=== PATIENT | female | born 1990 | race Caucasian/White ===

== ENCOUNTER 2017-10-16 21:47 | Emergency (ER) | payer MEDICAID ==
[2017-10-17 00:05] VITALS: BP 116/60
== END 2017-10-17 00:20 | disposition home or self-care (01) ==
LOC: ED 21:47
DX: N83.202 Unspecified ovarian cyst, left side (principal)
CPT/HCPCS: J1885

== ENCOUNTER 2017-11-05 13:48 | Emergency (ER) | payer MEDICAID ==
[~2017-11-05] VITALS: Ht 154.9 cm; Wt 78.5 kg
[2017-11-05 13:54] VITALS: Ht 154.9 cm; Wt 78.5 kg
[2017-11-05 14:48] VITALS: BP 105/68
== END 2017-11-05 14:48 | disposition home or self-care (01) ==
LOC: ED 13:48
DX: M54.2 Cervicalgia (principal); V49.9XXA Car occupant (driver) (passenger) injured in unspecified traffic accident, initial encounter; Y93.89 Activity, other specified; Y92.89 Other specified places as the place of occurrence of the external cause; Y99.8 Other external cause status
CPT/HCPCS: J1885

== ENCOUNTER 2018-04-03 18:34 | Emergency (ER) | payer OTHER ==
[~2018-04-03] VITALS: Ht 152.4 cm; Wt 85.3 kg
[2018-04-03 18:47] VITALS: Ht 152.4 cm; Wt 85.3 kg
[2018-04-03 21:22] VITALS: BP 113/65
== END 2018-04-03 21:22 | disposition home or self-care (01) ==
LOC: ED 18:34
DX: S39.012A Strain of muscle, fascia and tendon of lower back, initial encounter (principal); M54.41 Lumbago with sciatica, right side; R73.03 Prediabetes; Z90.49 Acquired absence of other specified parts of digestive tract; X50.1XXA Overexertion from prolonged static or awkward postures, initial encounter; Y93.E9 Activity, other interior property and clothing maintenance; Y92.89 Other specified places as the place of occurrence of the external cause; Y99.8 Other external cause status
CPT/HCPCS: J1885

== ENCOUNTER 2018-09-28 20:17 | Emergency (ER) | payer OTHER ==
[~2018-09-28] VITALS: Ht 152.4 cm; Wt 87.1 kg
[2018-09-28 20:23] VITALS: BP 109/74; Ht 152.4 cm; Wt 87.1 kg
== END 2018-09-28 21:06 | disposition left against medical advice (07) ==
LOC: ED 20:17
DX: Z53.21 Procedure and treatment not carried out due to patient leaving prior to being seen by health care provider (principal)

== ENCOUNTER 2019-01-16 22:30 | Emergency (ER) | payer OTHER ==
[~2019-01-16] VITALS: Ht 152.4 cm; Wt 87.1 kg
[2019-01-16 22:47] VITALS: Ht 152.4 cm; Wt 87.1 kg
[2019-01-17 00:29] VITALS: BP 121/80
== END 2019-01-17 00:29 | disposition home or self-care (01) ==
LOC: ED 22:30
DX: F41.9 Anxiety disorder, unspecified (principal); R06.02 Shortness of breath; R07.89 Other chest pain; Z90.49 Acquired absence of other specified parts of digestive tract

== ENCOUNTER 2020-04-03 13:20 | Emergency (ER) | payer OTHER ==
[~2020-04-03] VITALS: Ht 152.4 cm; Wt 89.8 kg
[2020-04-03 14:18] VITALS: BP 125/89
== END 2020-04-03 18:16 | disposition left against medical advice (07) ==
LOC: ED 13:20
DX: Z53.21 Procedure and treatment not carried out due to patient leaving prior to being seen by health care provider (principal)